=== PATIENT | male | born 1940 | race Caucasian/White ===

== ENCOUNTER → 2017-12-06 | Outpatient (CLI) | payer OTHER ==
[~2017-12-06] MED LIST: AMLODIPINE BESY10 MG PO; ASPIR 8181 MG PO; AZITHROMYCIN 2250 MG PO; AZOR 10-40 MG1 EACH; BYSTOLIC 5 MG5 M1 PO; CALCIUM WITH M1 EACH PO; CENTRUM SILVER1 EAC4 PO; DHEA50 MG PO; ELIQUIS5 MG PO; FISH OIL 1,001000 M2 PO; GINKGO BILOBA60 MG PO; GLUCOSAMINE &1 EACH PO; HYDROCODONE-AP1 EAC6 PO; IBUPROFEN 800800 MG PO; LEVAQUIN 500 M500 M2 PO; MEDROL DOSPAK21 TA1 PO; NEURONTIN 300300 M1 PO; NORCO 5-325 TA1 EACH PO; PRAVACHOL40 MG PO; PRO PO; PROSTATE COMPLEX PO; SENNA-S TABLET1 EACH PO; VITAMIN D1000 UNI2 PO; VITAMIN E400 UNIT PO; VITAMINC500 PO; [UNRECOGNIZED DRUG - OTHER]; [UNRECOGNIZED DRUG - OTHER]; [UNRECOGNIZED DRUG - OTHER] PO
--- NOTE | ~2017-12-06 | 2DMMODE ---
[facility] [address] [place] [address] 2 D/M-MODE ECHOCARDIOGRAM Name: JAMEY YOUNG Room #: [facility]#: [id number] Admission: 12/06/17 Attend Phys: Alexis Pillai Discharge: Date of : 42 Date of Service: 12/06/17 1040 Report #: [id number] THIS REPORT FOR: //name// APPROVED REPORT Study performed: 12/06/2017 09:15:15 EXAM: Comprehensive 2D, Doppler, and color-flow Echocardiogram Patient Location: Out-Patient Status: routine BSA: 2.28 HR: 61 bpm BP: 153/99 mmHg Rhythm: Paced Other Information Study Quality: Good Indications Afib, pacemaker 2D Dimensions RVDd: 45.74 mm LVEF(%): 54.68 (>50%) IVSd: 15.40 (7-11mm) LVOT Diam: 23.15 (18-24mm) LVDd: 51.24 mm PWd: 10.72 (7-11mm) LVDs: 36.62 (25-40mm) Aortic Root: 37.34 mm Servin's LVEF: 54.68 % Volumes Left Atrial Volume (Systole) Single Plane 4CH: 145.02 mL Single Plane 2CH: 111.54 mL LA ESV Index: 63.00 mL/m2 Aortic Valve AoV Peak Win.: 2.15 m/s AO Peak Gr.: 18.57 mmHg LVOT Max P.93 mmHg AO Mean Gr.: 11.88 mmHg AO V2 Mean: 1.67 m/s LVOT Max V: 0.99 m/s AO V2 VTI: 47.04 cm NEVIN Vmax: 1.94 cm2 AI Vmax: 4.65 m/s AI Hawkins: 2.07 m/s2 [facility] [place] [place] [address] 2 D/M-MODE ECHOCARDIOGRAM Name: JAMEY YOUNG [place] Room #: [facility] Jose Miguel#: [id number] Admission: 12/06/17 Attend Phys: [facility] Dis[facility]: Date of : 42 Date of Service: 12/06/17 1040 Report #: [id number] PHT: 653.43 ms Mitral Valve MV Decel. Time: 233.17 ms MV E Max Win.: 1.07 m/s Pulmonary Valve PV Peak Win.: 0.93 m/s PV Peak Gr.: 3.50 mmHg Tricuspid Valve TR Peak Win.: 2.54 m/s RAP Estimate: 10.00 mmHg TR Peak Gr.: 25.81 mmHg PA Pressure: 36.00 mmHg Left Ventricle The left ventricle is normal size. Moderate basal septal hypertrophy is present. Left ventricular systolic function is normal. LVEF is 55%. This study is not technically sufficient to allow evaluation of the LV diastolic function. Right Ventricle Right ventricle is mildly dilated. The right ventricular systolic function is normal. Pacemaker lead is present in the right ventricle. Atria Left atrium is severely dilated. Right atrium is moderately dilated. Aortic Valve Aortic valve is calcified. Mild to moderate aortic regurgitation. There is mild valvular aortic stenosis. Calculated aortic valve area is 1.9 cm2 with maximum pressure gradient of 19 mmHg and mean pressure gradient of 12 mmHg. Mitral Valve Mitral valve leaflets are mildly thickened. Moderate mitral annular calcification. Moderate mitral regurgitation. No evidence of mitral valve stenosis. Tricuspid Valve The tricuspid valve is normal in structure. Mild tricuspid regurgitation. Estimated PAP is 35-40mmHg. Pulmonic Valve The pulmonary valve is normal in structure. There is no pulmonic valvular regurgitation. [facility] [address] [place] [address] 2 D/M-MODE ECHOCARDIOGRAM Name: JAMEY YOUNG [place] Room #: REG CL Jose Miguel#: [id number] Admission: 12/06/17 Attend Phys: [facility] Discharge: Date of : 42 Date of Service: 12/06/17 1040 Report #: [id number] Great Vessels The aortic root is normal in size. Ascending aorta is not well visualized. IVC is dilated and collapses <50% with inspiration. Pericardium There is no pericardial effusion. <Conclusion> The left ventricle is normal size. LVEF is 55%. Right ventricle is mildly dilated. Pacemaker lead is present in the right ventricle. Right atrium is moderately dilated. Aortic valve is calcified. Mild to moderate aortic regurgitation. There is mild valvular aortic stenosis. Calculated aortic valve area is 1.9 cm2 with maximum pressure gradient of 19 mmHg and mean pressure gradient of 12 mmHg. Mitral valve leaflets are mildly thickened. Moderate mitral annular calcification. Moderate mitral regurgitation. The tricuspid valve is normal in structure. Mild tricuspid regurgitation. Estimated PAP is 35-40mmHg. Ascending aorta is not well visualized. The aortic root is normal in size. There is no pericardial effusion. <ELECTRONICALLY SIGNED> By: Jeanmarie Snell MD 12/06/17 1040 1040 1040 Jeanmarie Snell MD /INF
== END ==
LOC: CV 09:00
DX: I08.3 Combined rheumatic disorders of mitral, aortic and tricuspid valves (principal); I48.91 Unspecified atrial fibrillation; I70.0 Atherosclerosis of aorta; Z95.0 Presence of cardiac pacemaker

== ENCOUNTER 2018-01-23 17:21 | Emergency (ER) | payer OTHER ==
[~2018-01-23] VITALS: Ht 182.9 cm; Wt 104.3 kg
[~2018-01-23 17:21] MED LIST changes: -CALCIUM WITH M1 EACH PO; -CENTRUM SILVER1 EAC4 PO; -DHEA50 MG PO; -FISH OIL 1,001000 M2 PO; -GINKGO BILOBA60 MG PO; -GLUCOSAMINE &1 EACH PO; -HYDROCODONE-AP1 EAC6 PO; -NEURONTIN 300300 M1 PO; -PRO PO; -PROSTATE COMPLEX PO; -SENNA-S TABLET1 EACH PO; -VITAMIN D1000 UNI2 PO; -VITAMIN E400 UNIT PO; -VITAMINC500 PO; -[UNRECOGNIZED DRUG - OTHER] PO
[2018-01-23 18:20] LABS: URINE BILIRUBIN NEGATIVE (Negative); URINE BLOOD NEGATIVE (Negative); URINE CLARITY CLEAR; URINE COLOR YELLOW; URINE GLUCOSE-RANDOM* NEGATIVE (Negative); URINE KETONES NEGATIVE (Negative); URINE LEUKOCYTES-REFLEX NEGATIVE (Negative); URINE NITRITE-REFLEX NEGATIVE (Negative); URINE PROTEIN (DIPSTICK) NEGATIVE (Negative); URINE UROBILINOGEN 0.2 E.U./dl (0.2-1.0)
[2018-01-23 18:23] LABS: HEMATOCRIT 49.9 % (42.0-52.0); HEMOGLOBIN 16.7 gm/dL (14.0-18.0); MCH 34.7 pg (26.0-34.0); MCHC 33.4 g/dL (28.0-37.0); MCV 103.9 fL (80.0-100.0); RBC 4.8 mil/uL (4.50-6.00); RDW 13.6 % (10.5-14.5); WBC 9.8 thou/uL (4.0-11.0)
[2018-01-23 18:30] LABS: CALCIUM 9.1 mg/dL (8.5-10.1)
[2018-01-23 18:35] LABS: ALBUMIN 3.9 g/dL (3.4-5.0); TOTAL BILIRUBIN 1.3 mg/dL (<0.1-1.0); TOTAL PROTEIN 7.7 g/dL (6.4-8.2)
[2018-01-23 19:53] VITALS: BP 146/89
[2018-02-27] MEDS ORDERED: VITAMIN D1000 UNI2 PO (08:50)
[2018-02-27] MEDS ORDERED: VITAMIN E400 UNIT PO (08:50)
[2018-02-27] MEDS ORDERED: GLUCOSAMINE &1 EACH PO (08:51)
[2018-02-27] MEDS ORDERED: CENTRUM SILVER1 EAC4 PO (08:51)
[2018-02-27] MEDS ORDERED: FISH OIL 1,001000 M2 PO (08:52)
[2018-02-27] MEDS ORDERED: VITAMINC500 PO (08:52)
[2018-02-27] MEDS ORDERED: CALCIUM WITH M1 EACH PO (08:52)
[2018-02-27] MEDS ORDERED: PRO PO (09:08)
[2018-02-27] MEDS ORDERED: PROSTATE COMPLEX PO (09:08)
[2018-02-27] MEDS ORDERED: [UNRECOGNIZED DRUG - OTHER] PO (09:08)
[2018-02-27] MEDS ORDERED: GINKGO BILOBA60 MG PO (09:09)
[2018-02-27] MEDS ORDERED: DHEA50 MG PO (09:10)
== END 2018-01-23 19:54 | disposition home or self-care (01) ==
LOC: ER 17:21
PROVIDERS: Emergency Medicine
DX: K40.90 Unilateral inguinal hernia, without obstruction or gangrene, not specified as recurrent (principal); I10 Essential (primary) hypertension; F17.210 Nicotine dependence, cigarettes, uncomplicated; Z95.5 Presence of coronary angioplasty implant and graft

== ENCOUNTER 2018-02-28 05:22 | Day surgery (SDC) | payer OTHER ==
[~2018-02-28] VITALS: Ht 182.9 cm; Wt 106.6 kg
--- NOTE | ~2018-02-28 | S ---
[facility] Khadar Garcia [address] SURGICAL PATH RPT PROCEDURE Name: TROY YOUNG Room #: DEP [facility] M.R.#: [id number] Admission: 02/28/18 Date of : 42 Discharge: 03/01/18 Report #: [id number] Path Case #: [id number] PATHOLOGY REPORT COLLECTION DATE: 02/28/2018 RECEIVED DATE: 02/28/2018 SUBMITTING PHYS: Dr. Daniel Riddle OTHER PHYS: Dr. Kurt Tanner, DO Dr. Ad Damon SPECIMEN(S) RECEIVED: A.Left cord lipoma * * * * * * * * * * * * FINAL DIAGNOSIS: "Left cord lipoma", excision: - Mature adipose tissue consistent with lipoma. - Lymph node with reactive changes (1 node). (CLW:mml; 03/01/2018) PATHOLOGIST: Leigh Ann Márquez M.D. REPORT ELECTRONICALLY SIGNED BY: Leigh Ann Márquez M.D. DATE/TIME: 03/01/2018 13:44 * * * * * * * * * * * * GROSS PATHOLOGY: Received in formalin labeled "Troy Young left cord lipoma," is a piece of fibromembranous tissue measuring 6.8 x 4.6 x 1.3 cm. No nodules or lesions are identified. [employer] tissue is submitted in cassette A1. (SDY; 02/28/2018) CLINICAL HISTORY: Bilateral inguinal hernia INITIAL CPT CODE(S): A; 51515 Professional services performed by [facility] at [facility] [address] [address] Technical services performed by [facility] at [address] [place] [id number]. [facility] [address] [address] SURGICAL PATH RPT PROCEDURE Name: TROY YOUNG KECIA Room #: DEP [facility] Jose Miguel#: [id number] Admission: 02/28/18 Date of : 42 Discharge: 03/01/18 Report #: [id number] Path Case #: [id number] [address] PHONE: [phone] DIRECTOR: Elias Erickson M.D. * * * END OF REPORT * * *
--- NOTE | ~2018-02-28 | O ---
[facility] [place] [address] OPERATIVE REPORT Name: JAMEY YOUNG Room #: DEP [facility] M.R.#: [id number] Admission: 02/28/18 Attend Phys: Daniel Riddle MD, F Discharge: 03/01/18 Date of : 42 Report #: [id number] THIS REPORT FOR: //name// CC: Ad Riddle DATE OF SERVICE: 02/28/2018 PREOPERATIVE DIAGNOSES: 1. Bilateral inguinal hernias and incisional ventral hernia. 2. Atrial fibrillation. 3. Sick sinus syndrome. 4. Hypertension. POSTOPERATIVE DIAGNOSES: 1. Bilateral inguinal hernias and incarcerated incisional ventral hernia. 2. Atrial fibrillation. 3. Sick sinus syndrome. 4. Hypertension. PROCEDURE: 1. Laparoscopic transabdominal preperitoneal repair of left inguinal hernia with mesh. 2. Laparoscopic transabdominal preperitoneal repair of right inguinal hernia with ProGrip mesh. 3. Laparoscopic primary repair of incarcerated incisional ventral hernia. ANESTHESIA: General endotracheal anesthesia and local anesthetic. ESTIMATED BLOOD LOSS: 5 mL. SPECIMEN: Left spermatic cord lipoma. COMPLICATIONS: None appreciated. INDICATIONS FOR PROCEDURE: This is a 77-year-old male patient of Dr. Ad Damon who was seen in the [place] [facility] with right groin pain on 01/23/2018. CT revealed fat containing bilateral inguinal hernias as well as a small fat containing hernia at the umbilicus. The patient has a history of previous surgery in this area. He has been cleared from cardiovascular standpoint and presents today for laparoscopic repair of his hernias The patient has stopped his anticoagulation in preparation for this. OPERATIVE FINDINGS: Upon entrance into the abdominal cavity, bilateral inguinal hernias were identified. After taking down the peritoneum and identifying the landmark structures including the inferior epigastric vessels, pubic tubercle [facility] [address] [place] [address] OPERATIVE REPORT Name: JAMEY YOUNG Room #: [facility]P [facility].#: [id number] Admission: 02/28/18 Attend Phys: Daniel Riddle MD, F Discharge: 03/01/18 Date of : 42 Report #: [id number] and spermatic cord on each side, indirect inguinal hernias were present. A moderate sized left spermatic cord lipoma was present. This was excised to be sent for specimen. The patient also having an incarcerated incisional ventral hernia due to the umbilicus from his previous incision. Omentum was seen extending up to this area. The remainder of the lower abdominal incision was relatively devoid of adhesions. This hernia was amenable to primary repair. No other significant intra-abdominal pathology was identified. At the conclusion of the operation, sponge, needle, and instrument counts were correct. DESCRIPTION OF PROCEDURE IN DETAIL: After the risks, benefits, and expectations of the operation were discussed in detail with the patient, informed consent was obtained. The patient was identified in the preoperative holding area. He was given IV antibiotics as documented in the chart in line with SCIP metrics. The patient was then taken to the operating room and he was placed in the supine position. SCDs were placed in the patient's bilateral lower extremities and pneumatic compression was initiated. The patient was then given IV sedation and he was intubated without incident. His abdomen, groin size and male genitalia were prepped and draped in standard sterile fashion. A time-out was then performed to identify the correct patient and procedure. Local anesthetic was infiltrated into the skin and subcutaneous tissue supraumbilically where a curvilinear incision was made with #15-blade scalpel. Dissection was carried down to the fascia. A Veress needle was inserted and a pneumoperitoneum was achieved. A 5-mm Visiport was then placed intraabdominally with a 0-degree angled laparoscope. Pneumoperitoneum was achieved with insufflation pressure of 15 mmHg. A 30-degree angled laparoscope was then inserted. The abdominal cavity was briefly surveyed. Additional 5-mm ports were placed in the left lateral and right lateral locations under direct visualization after local anesthetic was infiltrated into the skin and subcutaneous tissue and appropriately sized incisions were made. The umbilical port was upsized to an 11-mm port. A 30-degree angled laparoscope was inserted through this port. The peritoneum was opened from the left anterior superior iliac spine medially. The peritoneum was then dissected off of the abdominal wall with blunt dissection and judicious use of the electrocautery. Dissection was carried down to the spermatic cord and the peritoneum was seen extending up into an indirect defect. The hernia sac was fully reduced from the indirect defect and the peritoneum was further taken down to provide an area of tissue for placement of the mesh to completely cover the defect. There was no evidence for a direct or femoral hernia. The spermatic cord was protected. The ProGrip mesh was then tailored to fit the area. The mesh was rolled and placed within the abdominal cavity through the 11 mm port. The mesh was then unrolled in a scroll down fashion to completely cover the defect with good overlap and good medialization of the mesh. There was no significant rippling of the mesh after its placement. The abdomen was reperitonealized with a SecureStrap absorbable fixation device [address] [address] OPERATIVE REPORT Name: JAMEY YOUNG Room #: DEP [facility] Jose Miguel#: [id number] Admission: 02/28/18 Attend Phys: Daniel Riddle MD, F Discharge: 03/01/18 Date of : 42 Report #: [id number] with good coverage of the mesh. Repair of the right inguinal hernia was undertaken next. This was done so in a similar fashion. The peritoneum was scored from the right anterior superior iliac spine medially. The peritoneum was then dissected off of the abdominal wall to identify the indirect right inguinal hernia. The hernia sac was reduced from the defect with blunt dissection and judicious use of electrocautery with care taken to protect the spermatic cord. The inferior epigastric vessels had been identified. Dissection was carried down to provide for fixation of the ProGrip mesh. The mesh was then tailored on the backtable to fit the space and cover the defect. The mesh was rolled and placed within the abdominal cavity through the 11 mm port. The mesh was then unrolled in a scroll down fashion with adherent side against the abdominal wall. There was good coverage of the defect with no significant rippling of the mesh. The mesh extended to the midline. The abdominal cavity then reperitonealized on the right side with the SecureStrap absorbable fixation device. Repair of the incarcerated incisional ventral hernia was undertaken next. Omentum was seen extending up into the hernia defect. This was dissected out of the hernia sac. After isolating the hernia defect, a mazbie-sm-iyina #1 PDS suture was placed with the needle tipped suture passer. The suture was tied under direct visualization to ensure no incorporation of the intra-abdominal content. A 12-mm port was then removed and an 0 PDS suture was placed with the Davie-Paulo laparoscopic fascial closure device and again, this was tied under direct visualization to ensure no incorporation of the intra-abdominal content. The abdominal cavity was then desufflated and the remaining ports were removed. Interrupted subcuticular 4-0 Monocryl sutures and Dermabond were used to close the skin incisions. The patient tolerated the procedure well. He was awakened, extubated, and taken to the recovery room in stable condition with no apparent intraoperative complications. <ELECTRONICALLY SIGNED> By: Daniel Riddle MD, FACS 03/07/18 1546 [id number] 1542 Daniel Riddle MD, FACS /nt
[~2018-02-28 05:22] MED LIST changes: +CALCIUM WITH M1 EACH PO; +CENTRUM SILVER1 EAC4 PO; +DHEA50 MG PO; +FISH OIL 1,001000 M2 PO; +GINKGO BILOBA60 MG PO; +GLUCOSAMINE &1 EACH PO; +PRO PO; +PROSTATE COMPLEX PO; +VITAMIN D1000 UNI2 PO; +VITAMIN E400 UNIT PO; +VITAMINC500 PO; +[UNRECOGNIZED DRUG - OTHER] PO
[2018-02-28 09:00] VITALS: BP 148/67
[2018-02-28 19:01] VITALS: BP 137/88
[2018-03-01 00:09] VITALS: BP 134/88
[2018-03-01 03:13] VITALS: BP 131/93
[2018-03-01 06:29] LABS: ABSOLUTE NEUTROPHILS 8.8 thou/uL (1.4-8.2); BASOPHILS 0.3 % (0.0-2.0); HEMATOCRIT 47.3 % (42.0-52.0); HEMOGLOBIN 15.9 gm/dL (14.0-18.0); LYMPHOCYTES 12.3 % (24.0-44.0); MCH 34.5 pg (26.0-34.0); MCHC 33.5 g/dL (28.0-37.0); MONOCYTES 8.6 % (1.0-8.0); PLATELET COUNT 319 thou/uL (150-400); POLYS 78.8 % (36.0-66.0); RDW 13.7 % (10.5-14.5); WBC 11.1 thou/uL (4.0-11.0)
[2018-03-01 06:49] LABS: CALCIUM 9.2 mg/dL (8.5-10.1); CREATININE 1.1 mg/dL (0.7-1.3); POTASSIUM 4.7 mmol/L (3.5-5.1)
[2018-03-01 07:21] VITALS: BP 131/82
[2018-03-01] MEDS ORDERED: HYDROCODONE-AP1 EAC6 PO (10:09)
[2018-03-01] MEDS ORDERED: NEURONTIN 300300 M1 PO (10:09)
[2018-03-01] MEDS ORDERED: SENNA-S TABLET1 EACH PO (10:09)
[2018-03-01 10:29] VITALS: BP 131/82
[2018-03-01 11:17] VITALS: BP 131/82
== END 2018-03-01 11:00 | disposition home or self-care (01) ==
LOC: TBA 05:22 → OR 05:22 → 4W 14:45 → OR 16:17 → ENTRNSPT 03-01 10:49 → EDTRNSPTSTS 03-01 10:53 → OR 03-01 11:00
PROVIDERS: Surgery
DX: K40.20 Bilateral inguinal hernia, without obstruction or gangrene, not specified as recurrent (principal); K43.0 Incisional hernia with obstruction, without gangrene; D17.6 Benign lipomatous neoplasm of spermatic cord; I48.91 Unspecified atrial fibrillation; I49.5 Sick sinus syndrome; I10 Essential (primary) hypertension; G47.33 Obstructive sleep apnea (adult) (pediatric); E78.5 Hyperlipidemia, unspecified; Z95.0 Presence of cardiac pacemaker; Z79.01 Long term (current) use of anticoagulants; Z98.890 Other specified postprocedural states; Z98.41 Cataract extraction status, right eye; Z98.42 Cataract extraction status, left eye; Z79.899 Other long term (current) drug therapy; Z79.82 Long term (current) use of aspirin

== ENCOUNTER → 2020-05-20 | Outpatient (CLI) | payer OTHER ==
[~2020-05-20] MED LIST changes: +HYDROCODONE-AP1 EAC6 PO; +NEURONTIN 300300 M1 PO; +SENNA-S TABLET1 EACH PO
== END ==
LOC: SJCVC 11:20
PROVIDERS: ATTEND Internal Medicine Cardiovascular Disease
DX: Z45.018 Encounter for adjustment and management of other part of cardiac pacemaker (principal); I35.0 Nonrheumatic aortic (valve) stenosis; I87.2 Venous insufficiency (chronic) (peripheral); I48.21 Permanent atrial fibrillation; I10 Essential (primary) hypertension; E78.00 Pure hypercholesterolemia, unspecified; G47.33 Obstructive sleep apnea (adult) (pediatric); Z95.0 Presence of cardiac pacemaker; Z99.89 Dependence on other enabling machines and devices; Z90.49 Acquired absence of other specified parts of digestive tract; Z96.653 Presence of artificial knee joint, bilateral; Z82.49 Family history of ischemic heart disease and other diseases of the circulatory system

== ENCOUNTER → 2021-03-08 | Outpatient (CLI) | payer OTHER | LOC: SJCVC 13:11 | PROVIDERS: ATTEND Internal Medicine Cardiovascular Disease | DX: I35.0 Nonrheumatic aortic (valve) stenosis (principal); I48.21 Permanent atrial fibrillation; E78.00 Pure hypercholesterolemia, unspecified; I10 Essential (primary) hypertension; Z95.0 Presence of cardiac pacemaker; Z79.899 Other long term (current) drug therapy; Z79.82 Long term (current) use of aspirin; Z72.89 Other problems related to lifestyle ==

== ENCOUNTER → 2021-09-15 | Outpatient (CLI) | payer OTHER | LOC: SJCVCIMAG 07:53 | PROVIDERS: ATTEND Internal Medicine Cardiovascular Disease | DX: I08.3 Combined rheumatic disorders of mitral, aortic and tricuspid valves (principal); I25.10 Atherosclerotic heart disease of native coronary artery without angina pectoris; E78.00 Pure hypercholesterolemia, unspecified; I87.2 Venous insufficiency (chronic) (peripheral); R01.1 Cardiac murmur, unspecified; I44.2 Atrioventricular block, complete; I10 Essential (primary) hypertension; K40.90 Unilateral inguinal hernia, without obstruction or gangrene, not specified as recurrent; K57.32 Diverticulitis of large intestine without perforation or abscess without bleeding; I48.0 Paroxysmal atrial fibrillation; Z95.0 Presence of cardiac pacemaker; Z72.89 Other problems related to lifestyle; Z79.82 Long term (current) use of aspirin; Z79.899 Other long term (current) drug therapy ==